=== PATIENT | female | born 1965 | race Caucasian/White ===

== ENCOUNTER 2020-01-31 15:23 | Emergency (ER) | payer SELFPAY ==
--- NOTE | 2020-01-31 15:35 | EDM.PDOC ---
ED HPI GENERAL MEDICAL PROBLEM - General Chief Complaint: Respiratory Problem Stated Complaint: COLD/SHORTNESS OF BREATH Time Seen by Provider: 01/31/20 15:25 Source of Information: Reports: Patient History Limitations: Reports: No Limitations - History of Present Illness INITIAL COMMENTS - FREE TEXT/NARRATIVE: HISTORY AND PHYSICAL: History of present illness: Patient is a 54-year-old female who presents to the emergency room with complaints of bilateral ear pain, itchy throat, dry nonproductive cough and generally feeling unwell over the past few days. Patient is concerned she may have influenza. Patient denies any headache, change in vision, syncope or near syncope. Denies any chest pain, back pain, shortness of breath. Denies any GI or symptoms. Patient has been eating and drinking appropriately. Review of systems: As per history of present illness and below otherwise all systems reviewed and negative. Past medical history: As per history of present illness and as reviewed below otherwise noncontributory. Surgical history: As per history of present illness and as reviewed below otherwise noncontributory. Social history: See social history for further information Family history: As per history of present illness and as reviewed below otherwise noncontributory. Physical exam: General: Well-developed and well-nourished 54-year-old female. Alert and oriented. Nontoxic-appearing and in no acute distress. HEENT: Atraumatic, normocephalic, pupils equal and reactive bilaterally, negative for conjunctival pallor or scleral icterus, mucous membranes moist, TMs normal bilaterally, throat clear, neck supple, nontender, trachea midline. No drooling or trismus noted. No meningeal signs. No hot potato voice noted. Lungs: Clear to auscultation, breath sounds equal bilaterally, chest nontender. Dry nonproductive cough is noted. Heart: S1S2, regular rate and rhythm without overt murmur Abdomen: Soft, nondistended, nontender. Skin: Intact, warm, dry. No lesions or rashes noted. Extremities: Atraumatic, moves all extremities per self without difficulty or deficits, negative for cords or calf pain. Neurovascular unremarkable. Neuro: Awake, alert, oriented. Cranial nerves II through XII unremarkable. Cerebellum unremarkable. Motor and sensory unremarkable throughout. Exam nonfocal. Notes: Influenza is negative. No acute findings on chest x-ray. Supportive care measures were reviewed and discussed. Voices understanding and is agreeable to plan of care. Denies any further questions or concerns at this time. Diagnostics: Influenza, CXR Therapeutics: Duo Neb Prescription: Pro-Air Inhaler Medrol Dosepak Impression: Viral URI Plan: 1. Negative chest x-ray and influenza screening. Continue with contact precautions such as coughing into your elbow/sleeve and good hand washing. Please alternate Tylenol and/or Ibuprofen as needed for pain and fever management. You can use the inhaler 1-2 puffs every 4 hours as needed 2. Get plenty of Rest. Encourage fluids to prevent dehydration. 3. Please follow up with your primary care provider. Return to the ED as needed as discussed. Definitive disposition and diagnosis as appropriate pending reevaluation and review of above. - Related Data Allergies Allergy/AdvReac Type Severity Reaction Status Date / Time No Known Allergies Allergy Verified 01/31/20 16:10 Home Meds: Home Meds Albuterol Sulfate [Proair Hfa] 2 puff IH Q4H PRN #1 [email or web address] 01/31/20 [Rx] Venlafaxine [Effexor XR] 225 mg PO DAILY 01/31/20 [History] methylPREDNISolone [Medrol] 1 dose PO DAILY 6 Days #1 dospk 01/31/20 [Rx] ED ROS GENERAL - Review of Systems Review Of Systems: Comprehensive ROS is negative, except as noted in HPI. ED EXAM, GENERAL - Physical Exam Exam: See Below (See dictation) Course - Vital Signs Last Recorded V/S: Last Vital Signs Temp 97.8 F 01/31/20 16:12 Pulse 90 01/31/20 16:12 Resp 18 01/31/20 16:12 BP 134/99 H 01/31/20 16:12 Pulse Ox 96 01/31/20 16:12 - Orders/Labs/Meds Orders: Active Orders 24 hr Category Date Time Status RT Aerosol Therapy [RC] ASDIRECTED Care 01/31/20 15:58 Active Isolation [COMM] Routine Oth 01/31/20 15:33 Active Meds: Medications Discontinued Medications Generic Name Dose Route Start Last Admin Trade Name Freq PRN Reason Stop Dose Admin Albuterol/Ipratropium 3 ml 01/31/20 15:58 Duoneb 3.0-0.5 Mg/3 Ml NEB 01/31/20 15:59 ONETIME ONE Departure - Departure Time of Disposition: 16:23 Disposition: Home, Self-Care 01 Clinical Impression: Viral URI - Discharge Information Prescriptions: Albuterol Sulfate [Proair Hfa] 2 puff IH Q4H PRN #1 [email or web address].[email or web address] PRN Reason: Dyspnea methylPREDNISolone [Medrol] 1 dose PO DAILY 6 Days #1 dospk Instructions: Viral Respiratory Infection, [id number] Referrals: Panda Campbell MD [Primary Care Provider] - Forms: ED Department Discharge Additional Instructions: The following information is given to patients seen in the emergency department who are being discharged to home. This information is to outline your options for follow-up care. We provide all patients seen in our emergency department with a follow-up referral. The need for follow-up, as well as the timing and circumstances, are variable depending upon the specifics of your emergency department visit. If you don't have a primary care physician on staff, we will provide you with a referral. We always advise you to contact your personal physician following an emergency department visit to inform them of the circumstance of the visit and for follow-up with them and/or the need for any referrals to a consulting specialist. The emergency department will also refer you to a specialist when appropriate. This referral assures that you have the opportunity for follow-up care with a specialist. All of these measure are taken in an effort to provide you with optimal care, which includes your follow-up. Under all circumstances we always encourage you to contact your private physician who remains a resource for coordinating your care. When calling for follow-up care, please make the office aware that this follow-up is from your recent emergency room visit. If for any reason you are refused follow-up, please contact the [facility] Emergency Department at and asked to speak to the emergency department charge nurse. [facility] [address] [place] [id number] [id number] 1. Negative chest x-ray and influneza screening. Continue with contact precautions such as coughing into your elbow/sleeve and good hand washing. Please alternate Tylenol and/or Ibuprofen as needed for pain and fever management. Consider taking an upgj-uqg-zqxrzpy histamine (Claritin, Zytrec, etc..) for your scratchy itchy throat and ears. You can use the inhaler 1-2 puffs every 4 hours as needed 2. Get plenty of Rest. Encourage fluids to prevent dehydration. 3. Please follow up with your primary care provider. Return to the ED as needed as discussed. Sepsis Event Note - Focused Exam Vital Signs: Vital Signs Temp Pulse Resp BP Pulse Ox 01/31/20 16:12 97.8 F 90 18 134/99 H 96 Date Exam was Performed: 01/31/20 Time Exam was Performed: 16:26 - My Orders Last 24 Hours: My Active Orders 01/31/20 15:33 Isolation [COMM] Routine 01/31/20 15:58 RT Aerosol Therapy [RC] ASDIRECTED - Assessment/Plan Last 24 Hours: My Active Orders 01/31/20 15:33 Isolation [COMM] Routine 01/31/20 15:58 RT Aerosol Therapy [RC] ASDIRECTED
[2020-01-31] MEDS ORDERED: Albuterol/Ipratropium 3.0-0.5 MG/3 ML Neb Soln NEB ONE (15:58)
--- NOTE | 2020-01-31 16:21 | CR ---
Chest: 2 views of the chest were obtained. Comparison: No previous chest imaging is available. Heart size and mediastinum are normal. Lungs are clear with no acute parenchymal change. Minimal scoliosis is noted within the spine. No acute osseous finding is seen. Impression: 1. Nothing acute is seen on 2 view chest x-ray. Diagnostic code #2 This report was dictated in MDT
== END 2020-01-31 16:50 | disposition home or self-care (01) ==
LOC: MW.ED 15:23
DX: J06.9 Acute upper respiratory infection, unspecified (principal)
CPT/HCPCS: 71046; 71046-26; 87804; 99283-25

== ENCOUNTER 2020-10-20 17:19 | Emergency (ER) | payer SELFPAY ==
[2020-10-20] MEDS ORDERED: Ondansetron 4 MG/2 ML SDV IVPUSH ONE (17:56)
[2020-10-20] MEDS ORDERED: Ketorolac 30 MG/ML SDV IVPUSH ONE (17:56)
[2020-10-20] MEDS ORDERED: Sodium Chloride 0.9% 1,000 ML IV ONE (17:56)
--- NOTE | 2020-10-20 18:39 | PCM.SN.2 ---
- Free Text/Narrative Note: 12-Lead ECG Interpretation Acquired: 6:09 PM Rhythm: Sinus rhythm Rate: 89 bpm [place]: Normal Intervals: Normal Ectopy: None RV Strain: No obvious RV strain pattern. ST Segments/T-Waves: No notable changes Acute Ischemic Changes: None apparent Interpretation: No STEMI
--- NOTE | 2020-10-20 18:43 | CR ---
INDICATION: Dyspnea COMPARISON: January 31, 2020 TECHNIQUE: Single-view portable chest radiograph. FINDINGS: TUBES AND LINES: None. HEART AND MEDIASTINUM: The heart size is normal. The mediastinal contour appears normal for patient age. LUNGS AND PLEURAL SPACES: The lungs appear normal.The pleural spaces are unremarkable. OSSEOUS STRUCTURES: Age-appropriate appearance. No acute focal finding. IMPRESSION: No evidence of active pulmonary disease. Dictated by Jose Zamora MD @ Oct 20 2020 6:42PM Signed by Dr. Jose Zamora @ Oct 20 2020 6:43PM
[2020-10-20 18:51] LABS: BLOOD UREA NITROGEN,BUN 14 mg/dL (7.0-18.0); CARBON DIOXIDE,CO2 28.2 mmol/L (21.0-32.0); CHLORIDE,CL 103 mmol/L (98-107); GLUCOSE RANDOM 91 mg/dL (74-106); POTASSIUM,K 3.9 mmol/L (3.5-5.1); SODIUM,NA 139 mmol/L (136-145)
--- NOTE | 2020-10-20 19:03 | EDM.PDOC ---
ED HPI GENERAL MEDICAL PROBLEM - General Chief Complaint: General Stated Complaint: COVID COMPLICATIONS Time Seen by Provider: 10/20/20 17:51 Source of Information: Reports: Patient History Limitations: Reports: No Limitations - History of Present Illness INITIAL COMMENTS - FREE TEXT/NARRATIVE: HISTORY AND PHYSICAL: History of present illness: Patient is a 55-year-old female who presents to the emergency room stating she does not feel well enough to return to work. She was diagnosed with COVID-19 on October 09, 2020. She states she was released to go back to work but she continues to have generalized body aches, sinus pressure/headache, fatigue and dry cough. She states she has discomfort in both of her shoulders into her neck, believes that the tension in her neck is causing her sinus headache as it feels like it is wrapping around her scalp. 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 She would like to be evaluated and if possible extend her work excuse until she feels improved. Patient denies any fever, chills, change in vision, syncope or near syncope. Denies any chest pain, back pain, shortness of breath. Denies any abdominal pain, nausea, vomiting, diarrhea, constipation or dysuria. Has not noted any blood in urine or stool. Patient has been eating and drinking appropriately. Review of systems: As per history of present illness and below otherwise all systems reviewed and negative. Past medical history: As per history of present illness and as reviewed below otherwise n oncontributory. Surgical history: As per history of present illness and as reviewed below otherwise noncontributory. Social history: See social history for further information Family history: As per history of present illness and as reviewed below otherwise noncontributory. Physical exam: General: Well developed and well nourished. Alert and orientated x 3. Nontoxic in appearance and in no acute distress. Vital signs are stable and have been reviewed by me. Nursing notes were reviewed. HEENT: Atraumatic, normocephalic, pupils equal and reactive bilaterally, negative for conjunctival pallor or scleral icterus, mucous membranes he, TMs normal bilaterally, throat clear, neck supple, nontender, trachea midline. No drooling or trismus noted. No meningeal signs. No hot potato voice noted. Lungs: Clear to auscultation, breath sounds equal bilaterally, chest nontender. Normal work of breathing, no accessory muscles used. Heart: S1S2, regular rate and rhythm without overt murmur Abdomen: Soft, nondistended, nontender. Negative for masses or costovertebral tenderness. Skin: Intact, warm, dry. No lesions or rashes noted. Hematologic: No petechiae or purpra. Mucosa appropriate color and normal nail bed color and refill. Extremities: Atraumatic, moves all extremities per self without difficulty or deficits, negative for cords or calf pain. Neurovascular unremarkable. Neuro: Awake, alert, oriented. Cranial nerves II through XII unremarkable. Cerebellum unremarkable. Motor and sensory unremarkable throughout. Exam nonfocal. C-spine/Back: No pinpoint vertebral tenderness upon palpation. No crepitus, step-offs or obvious deformities. Patient is ambulatory into the emergency room without difficulty or deficit. Denies any urinary or fecal incontinence. Denies any numbness, tingling or saddle paresthesia. No concerns of serious infection, fracture or cord compression, or cauda equina syndrome. Deep tendon reflexes brisk bilaterally. Psychiatric: Mood and affect are appropriate. Normal thought process. Answering questions appropriately. Notes: Patient's physical exam is within normal limits, although I will do a generalized work-up to make sure we are not missing anything in light of her recent COVID-19 illness. Vital signs are stable. She does appear slightly dehydrated we will give her some IV fluids and medications for comfort. All diagnostics are unremarkable. She does feel improved after the fluids and Toradol. We will give her an extended release with the intent she will follow up with a primary care provider for reevaluation before the end of the week. I have talked with the patient about today's findings, in addition to providing specific details for plan of care. Reassessment at the time of disposition demonstrates that the patient is in no acute distress. The patient is stable for discharge, counseling was provided and we discussed in great detail signs and symptoms that would prompt them to return to the Emergency Department. Medication, follow up and supportive care measures were reviewed and discussed. Voices understanding and is agreeable to plan of care. Denies any further questions or concerns at this time. Diagnostics: CBC, CMP, Troponin, EKG, CXR Therapeutics: IV fluids, Toradol Prescription: None Impression: COVID-19 Plan: 1. Today your lab work, vital signs, EKG, and chest x-ray are within normal limits. Your symptoms are likely the sequela of COVID-19. 2. You can alternate Tylenol and ibuprofen as needed for pain management. 3. We encourage you to follow up with your primary care provider and/or recommended specialist in the next few days for re-evaluation and further care/management. If your symptoms should worsen, new symptoms develop or any of the signs and symptoms we discussed should arise please return to the emergency room or call 911 (if needed). Definitive disposition and diagnosis as appropriate pending reevaluation and review of above. Headache Pain Score (Numeric/FACES): 8 - Related Data Allergies Allergy/AdvReac Type Severity Reaction Status Date / Time No Known Allergies Allergy Verified 10/20/20 17:27 Home Meds: Home Meds . [No Known Home Meds] 10/20/20 [History] Past Medical History - Past Health History Medical/Surgical History: Denies Medical/Surgical History - Infectious Disease History Infectious Disease History: Reports: Chicken Pox Social & Family History - Tobacco Use Tobacco Use Status *Q: Never Tobacco User - Caffeine Use Caffeine Use: Reports: None - Recreational Drug Use Recreational Drug Use: No ED ROS GENERAL - Review of Systems Review Of Systems: Comprehensive ROS is negative, except as noted in HPI. ED EXAM, GENERAL - Physical Exam Exam: See Below (See dictation) Course - Vital Signs Last Recorded V/S: Last Vital Signs Temp 96.5 F L 10/20/20 17:28 Pulse 99 10/20/20 17:28 Resp 18 10/20/20 17:28 BP 149/100 H 10/20/20 17:28 Pulse Ox 99 10/20/20 17:28 - Orders/Labs/Meds Labs: Laboratory Tests 10/20/20 10/20/20 Range/Units 18:21 18:21 WBC 7.46 (4.0-11.0) K/uL RBC 4.76 (4.30-5.90) M/uL Hgb 14.8 (12.0-16.0) g/dL Hct 44.0 (36.0-46.0) % MCV 92.4 (80.0-98.0) fL MCH 31.1 (27.0-32.0) pg MCHC 33.6 (31.0-37.0) g/dL RDW Std Deviation 41.5 (28.0-62.0) fl RDW Coeff of Tonio 12 (11.0-15.0) % Plt Count 344 (150-400) K/uL MPV 9.30 (7.40-12.00) fL Neut % (Auto) 77.0 (48.0-80.0) % Lymph % (Auto) 13.9 L (16.0-40.0) % [place] % (Auto) 7.1 (0.0-15.0) % Eos % (Auto) 1.7 (0.0-7.0) % Baso % (Auto) 0.3 (0.0-1.5) % Neut # (Auto) 5.7 (1.4-5.7) K/uL Lymph # (Auto) 1.0 (0.6-2.4) K/uL [place] # (Auto) 0.5 (0.0-0.8) K/uL Eos # (Auto) 0.1 (0.0-0.7) K/uL Baso # (Auto) 0.0 (0.0-0.1) K/uL Nucleated RBC % 0.0 /100WBC Nucleated RBCs # 0 K/uL Sodium 139 (136-145) mmol/L Potassium 3.9 (3.5-5.1) mmol/L Chloride 103 (98-107) mmol/L Carbon Dioxide 28.2 (21.0-32.0) mmol/L BUN 14 (7.0-18.0) mg/dL Creatinine 0.8 (0.6-1.0) mg/dL Est Cr Clr Drug Dosing 75.26 mL/min Estimated GFR (MDRD) > 60.0 ml/min Glucose 91 (74-106) mg/dL Calcium 9.3 (8.5-10.1) mg/dL Total Bilirubin 0.3 (0.2-1.0) mg/dL AST 15 (15-37) IU/L ALT 22 (14-63) IU/L Alkaline Phosphatase 120 H (46-116) U/L Troponin I < 0.050 (0.000-0.056) ng/mL Total Protein 8.0 (6.4-8.2) g/dL Albumin 3.8 (3.4-5.0) g/dL Globulin 4.2 H (2.6-4.0) g/dL Albumin/Globulin Ratio 0.9 (0.9-1.6) Meds: Medications Discontinued Medications Generic Name Dose Route Start Last Admin Trade Name Rigo PRN Reason Stop Dose Admin Sodium Chloride 1,000 mls @ 999 mls/hr 10/20/20 17:56 10/20/20 18:23 Normal Saline IV 10/20/20 18:56 999 mls/hr STAT ONE Administration Ketorolac Tromethamine 30 mg 10/20/20 17:56 10/20/20 18:25 Toradol IVPUSH 10/20/20 17:57 30 mg ONETIME ONE Administration Ondansetron HCl 4 mg 10/20/20 17:56 10/20/20 18:25 Zofran IVPUSH 10/20/20 17:57 4 mg ONETIME ONE Administration Departure - Departure Time of Disposition: 19:12 Disposition: Home, Self-Care 01 Clinical Impression: COVID-19 - Discharge Information Instructions: COVID-19 Referrals: PCP,None [Primary Care Provider] - Forms: ED Department Discharge Additional Instructions: The following information is given to patients seen in the emergency department who are being discharged to home. This information is to outline your options for follow-up care. We provide all patients seen in our emergency department with a follow-up referral. The need for follow-up, as well as the timing and circumstances, are variable depending upon the specifics of your emergency department visit. If you don't have a primary care physician on staff, we will provide you with a referral. We always advise you to contact your personal physician following an emergency department visit to inform them of the circumstance of the visit and for follow-up with them and/or the need for any referrals to a consulting specialist. The emergency department will also refer you to a specialist when appropriate. This referral assures that you have the opportunity for follow-up care with a specialist. All of these measure are taken in an effort to provide you with optimal care, which includes your follow-up. Under all circumstances we always encourage you to contact your private physician who remains a resource for coordinating your care. When calling for follow-up care, please make the office aware that this follow-up is from your recent emergency room visit. If for any reason you are refused follow-up, please contact the [facility] Emergency Department at and asked to speak to the emergency department charge nurse. [facility] [address] [place] [address] [facility] [address] [place] [phone] Thank you for choosing the [facility] emergency department in [place] for your medical needs today. It was a pleasure caring for you. Today you were seen in the emergency department for COVID-19. 1. Today your lab work, vital signs, EKG, and chest x-ray are within normal limits. Your symptoms are likely the sequela of COVID-19. 2. You can alternate Tylenol and ibuprofen as needed for pain management. 3. We encourage you to follow up with your primary care provider and/or recommended specialist in the next few days for re-evaluation and further care/management. If your symptoms should worsen, new symptoms develop or any of the signs and symptoms we discussed should arise please return to the emergency room or call 911 (if needed). Sepsis Event Note (ED) - Evaluation Sepsis Screening Result: No Definite Risk
== END 2020-10-20 19:20 | disposition home or self-care (01) ==
LOC: MW.ED 17:19
DX: U07.1 COVID-19 (principal)
CPT/HCPCS: 36415; 71045; 80053; 84484; 85025; 93005; 96374; 96375; 99284; J1885; J2405; J7030

== ENCOUNTER 2020-11-13 13:24 | Emergency (ER) | payer SELFPAY ==
--- NOTE | 2020-11-13 14:04 | EDM.PDOC ---
ED HPI GENERAL MEDICAL PROBLEM - General Chief Complaint: Skin Complaint Stated Complaint: swelling in face Time Seen by Provider: 11/13/20 13:53 Source of Information: Reports: Patient History Limitations: Reports: No Limitations - History of Present Illness INITIAL COMMENTS - FREE TEXT/NARRATIVE: HISTORY AND PHYSICAL: History of present illness: Patient is a 55-year-old female who presents to the emergency room with complaints of an infected right nare. She states that she noticed a pimple on the inside of her nostril and had tried to pop it. Over the past 24 hours she has had some redness to the external nare and is concerned that she may need antibiotics. Patient denies any fever, chills, headache, change in vision, syncope or near syncope. Denies any chest pain, back pain, shortness of breath or cough. Denies any abdominal pain, nausea, vomiting, diarrhea, constipation or dysuria. Has not noted any blood in urine or stool. Patient has been eating and drinking appropriately. Review of systems: As per history of present illness and below otherwise all systems reviewed and negative. Past medical history: As per history of present illness and as reviewed below otherwise noncontributory. Surgical history: As per history of present illness and as reviewed below otherwise noncontributory. Social history: See social history for further information Family history: As per history of present illness and as reviewed below otherwise noncontributory. Physical exam: General: Well developed and well nourished. Alert and orientated x 3. Nontoxic in appearance and in no acute distress. Vital signs are stable and have been reviewed by me. Nursing notes were reviewed. HEENT: Atraumatic, normocephalic, pupils equal and reactive bilaterally, negative for conjunctival pallor or scleral icterus, mucous membranes moist, nares are patent and intact (SEE SKIN), TMs normal bilaterally, throat clear, neck supple, nontender, trachea midline. No drooling or trismus noted. No meningeal signs. No hot potato voice noted. Lungs: Clear to auscultation, breath sounds equal bilaterally. Normal work of breathing, no accessory muscles used. Heart: S1S2, regular rate and rhythm without overt murmur Skin: Small raised bump to the distal outer corner of right nare with mild erythema to the upper lip and cheek about 7mm in diameter. No fluctuance and nonindurated. Remaining skin is intact, warm, dry. No lesions or rashes noted. Hematologic: No petechiae or purpra. Mucosa appropriate color and normal nail bed color and refill. Extremities: Atraumatic, moves all extremities per self without difficulty or deficits, negative for cords or calf pain. Neurovascular unremarkable. Neuro: Awake, alert, oriented. Cranial nerves II through XII unremarkable. Cerebellum unremarkable. Motor and sensory unremarkable throughout. Exam nonfocal. Psychiatric: Mood and affect are appropriate. Normal thought process. Answering questions appropriately. Notes: Patient states she popped a "pimple" to the inside of her nose and now it appears she may have an early cellulitis. I will place her on a short course of antibiotics. I have talked with the patient about today's findings, in addition to providing specific details for plan of care. Reassessment at the time of disposition demonstrates that the patient is in no acute distress. The patient is stable for discharge, counseling was provided and we discussed in great detail signs and symptoms that would prompt them to return to the Emergency Department. Medication, follow up and supportive care measures were reviewed and discussed. Voices understanding and is agreeable to plan of care. Denies any further questions or concerns at this time. Diagnostics: None Therapeutics: None Prescription: Keflex Impression: Cellulitis Plan: 1. Gentle heat to the area. Keep the skin clean and dry. Continue to monitor for signs of improvement. 2. Take the mediation as prescribed. You can take Tylenol and/or Ibuprofen as needed for pain. 3. We encourage you to follow up with your primary care provider and/or recommended specialist in the next few days for re-evaluation and further care/management. If your symptoms should worsen, new symptoms develop or any of the signs and symptoms we discussed should arise please return to the emergency room or call 911 (if needed). Definitive disposition and diagnosis as appropriate pending reevaluation and review of above. - Related Data Allergies Allergy/AdvReac Type Severity Reaction Status Date / Time No Known Allergies Allergy Verified 11/13/20 14:06 Home Meds: Home Meds cephALEXin [Keflex] 500 mg PO Q8H 5 Days #15 cap 11/13/20 [Rx] Past Medical History - Past Health History Medical/Surgical History: Denies Medical/Surgical History - Infectious Disease History Infectious Disease History: Reports: Chicken Pox Social & Family History - Caffeine Use Caffeine Use: Reports: None ED ROS GENERAL - Review of Systems Review Of Systems: Comprehensive ROS is negative, except as noted in HPI. ED EXAM, SKIN/RASH Exam: See Below (See dictation) Course - Vital Signs Last Recorded V/S: Last Vital Signs Temp 97.5 F 11/13/20 13:54 Pulse 100 11/13/20 14:23 Resp 16 11/13/20 14:23 BP 117/76 11/13/20 14:23 Pulse Ox 95 11/13/20 14:23 - Orders/Labs/Meds Meds: Medications Discontinued Medications Generic Name Dose Route Start Last Admin Trade Name Freq PRN Reason Stop Dose Admin Mupirocin 1 gm 11/13/20 22:00 Bactroban Crm TOP TID AMBER Departure - Departure Time of Disposition: 14:02 Disposition: Home, Self-Care 01 Clinical Impression: Cellulitis Qualifiers: Site of cellulitis: face Qualified Code(s): L03.211 - Cellulitis of face - Discharge Information Prescriptions: cephALEXin [Keflex] 500 mg PO Q8H 5 Days #15 cap Instructions: Cellulitis, Adult, [id number] Referrals: Daysi Rankin DO [Primary Care Provider] - Forms: ED Department Discharge Additional Instructions: The following information is given to patients seen in the emergency department who are being discharged to home. This information is to outline your options for follow-up care. We provide all patients seen in our emergency department with a follow-up referral. The need for follow-up, as well as the timing and circumstances, are variable depending upon the specifics of your emergency department visit. If you don't have a primary care physician on staff, we will provide you with a referral. We always advise you to contact your personal physician following an emergency department visit to inform them of the circumstance of the visit and for follow-up with them and/or the need for any referrals to a consulting specialist. The emergency department will also refer you to a specialist when appropriate. This referral assures that you have the opportunity for follow-up care with a specialist. All of these measure are taken in an effort to provide you with optimal care, which includes your follow-up. Under all circumstances we always encourage you to contact your private physician who remains a resource for coordinating your care. When calling for follow-up care, please make the office aware that this follow-up is from your recent emergency room visit. If for any reason you are refused follow-up, please contact the [facility] Emergency Department at and asked to speak to the emergency department charge nurse. [facility] [address] [place] [address] [facility] [address] [place] [address] Thank you for choosing the [facility] emergency department in [place] for your medical needs today. It was a pleasure caring for you. Today you were seen in the emergency department for skin infection. 1. Gentle heat to the area. Keep the skin clean and dry. Continue to monitor for signs of improvement. 2. Take the mediation as prescribed. You can take Tylenol and/or Ibuprofen as needed for pain. 3. We encourage you to follow up with your primary care provider and/or recommended specialist in the next few days for re-evaluation and further care/management. If your symptoms should worsen, new symptoms develop or any of the signs and symptoms we discussed should arise please return to the emergency room or call 911 (if needed). Sepsis Event Note (ED) - Focused Exam Vital Signs: Vital Signs Temp Pulse Resp BP Pulse Ox 11/13/20 14:23 100 16 117/76 95 11/13/20 13:54 97.5 F 108 H 17 121/83 95
[2020-11-13] MEDS ORDERED: Mupirocin Crm 30 GM Tube TOP SCH (22:00)
== END 2020-11-13 14:24 | disposition home or self-care (01) ==
LOC: MW.ED 13:24
DX: L03.211 Cellulitis of face (principal)
CPT/HCPCS: 99282; 99283

== ENCOUNTER 2021-07-29 09:52 | Emergency (ER) | payer SELFPAY ==
--- NOTE | 2021-07-29 10:27 | EDM.PDOC ---
ED HPI GENERAL MEDICAL PROBLEM - General Chief Complaint: Lower Extremity Injury/Pain Stated Complaint: POSSIBLE SPIDER BITE Time Seen by Provider: 07/29/21 10:08 Source of Information: Reports: Patient History Limitations: Reports: No Limitations - History of Present Illness INITIAL COMMENTS - FREE TEXT/NARRATIVE: HISTORY AND PHYSICAL: History of present illness: The patient is a 56-year-old female who presents to the emergency room with complaints of left lower posterior ankle spider bite that she noticed last [id number]/2021. The patient states that on 07/22/2021 coworker emergency department in a container and marked the spider outside. The patient stated that she did not boxes on Sunday but did not notice anything. On Sunday she wore above the ankle boot to work and by Sunday evening noticed pain lower posterior midline left ankle. Over the course of the week the left foot can become swollen. She has been using Neosporin on the area. She has been taking Motrin up to 6 tablets or 1200mg three to four times per day. Patient denies any fever, chills, headache, change in vision, syncope or near syncope. Denies any chest pain, back pain, shortness of breath or cough. Denies any abdominal pain, nausea, vomiting, diarrhea, constipation or dysuria. Has not noted any blood in urine or stool. Patient has been eating and drinking appropriately. Review of systems: As per history of present illness and below otherwise all systems reviewed and negative. Past medical history: As per history of present illness and as reviewed below otherwise noncontr ibutory. Surgical history: As per history of present illness and as reviewed below otherwise noncontributory. Social history: See social history for further information Family history: As per history of present illness and as reviewed below otherwise noncontributory. Physical exam: General: Well developed and well nourished. Alert and orientated x 3. Nontoxic in appearance and in no acute distress. Vital signs are stable and have been reviewed by me. Nursing notes were reviewed. HEENT: Atraumatic, normocephalic, pupils equal and reactive bilaterally, negative for conjunctival pallor or scleral icterus, mucous membranes moist, TMs normal bilaterally, throat clear, neck supple, nontender, trachea midline. No drooling or trismus noted. No meningeal signs. No hot potato voice noted. Lungs: Clear to auscultation bilaterally. No wheezes, rales, or rhonchi. Chest nontender. Normal work of breathing, no accessory muscles used. Heart: S1S2, regular rate and rhythm without overt murmur, gallops, or rubs. No JVD. No peripheral edema Abdomen: Soft, nondistended, nontender. Normoactive bowel sounds. Negative for masses or costovertebral tenderness. Skin: Warm & dry. Left lower leg with erythema and swelling. Weeping bulging core. Hematologic: No petechiae or purpra. Mucosa appropriate color and normal nail bed color and refill. Extremities: Moves all extremities per self without difficulty or deficits, negative for cords or calf pain. Neurovascular unremarkable. Neuro: Awake, alert, oriented. Cranial nerves II through XII unremarkable. Cerebellum unremarkable. Motor and sensory unremarkable throughout. Exam nonfocal. Psychiatric: Mood and affect are appropriate. Normal thought process. Answering questions appropriately. Notes: *This patient was seen and evaluated during the 2019 SARS-CoV-2 novel coronavirus pandemic period. Community viral transmission is ongoing at time of this encounter and the emergency department is operating under pandemic response procedures. Stated above the patient is a 56-year-old female who presents to the emergency room with complaints of posterior left lower leg wound that is erythematous, swollen, and weeping serosanguineous foot. Upon examination noted fluctuance area with white fluid. I will excise drain the area. The patient is "anxious about the pain, so I will treat her with 1 mg of Dilaudid IM. Once that has taken effect I numb the area and performed the procedure. Patient is agreeable with this plan. Area I&D after injection of lidocaine 1%. Please see procedure note. The patient tolerated well. I will prescribe Augmentin one by mouth twice a day for 5 days and cephalexin 500 mg every 6 hours for 5 days. Bactroban to area daily for 5 days. Tramadol 50 mg every 6 hours as needed for pain #8. Instructed the patient the Bactroban is not to be applied while the area is draining. And that if the patient does not need to apply the Bactroban that she does not need to. I have talked with the patient about today's findings, in addition to providing specific details for plan of care. Reassessment at the time of disposition demonstrates that the patient is in no acute distress. The patient is stable for discharge, counseling was provided and we discussed in great detail signs and symptoms that would prompt them to return to the Emergency Department. Medication, follow up and supportive care measures were reviewed and discussed. Voices understanding and is agreeable to plan of care. Denies any further questions or concerns at this time. Therapeutics: Dilaudid 1 mg Prescription: Augmentin one by mouth twice a day for 5 days and cephalexin 500 mg every 6 hours for 5 days. Bactroban to area daily for 5 days. Tramadol 50 mg every 6 hours as needed for pain #8 Impression: Cellulitis Plan: 1. You were evaluated today on an emergent basis. Your wound on your back of your lower left leg was evaluated and found to be infected. We treated the infection by opening the wound and draining the infection. I have prescribed Augmentin one by mouth twice a day for 5 days and cephalexin 500 mg every 6 hours for 5 days. You need to complete both antibiotics. I am covering you for possible MRSA. Leave the dressing in place for at least 24 hours. Keep the area clean and dry. You can work as long as you keep the area covered. I have treated your pain while in the emergency department on Dilaudid 1 mg intramuscularly. You can take Tylenol 650 mg every 4 hours as needed for pain. You can take Motrin 600 mg, which is 3 tablets, every 6-8 hours as needed for pain. The maximum dose of Motrin in a 24-hour period is 3200 mg. Be Sure not to go over the maximum dose as this can be detrimental to your kidneys. I have prescribed tramadol 50 mg every 6 hours as needed for pain for 2 days. I have prescribed Bactroban to apply to area daily for 5 days. Please stay away from Neosporin as this can cause a skin rash making it hard to differentiate between infection and irritation. You will need to follow-up with your primary care. I would call to make an appointment for your fifth day of the antibiotic to ensure healing. If she has given you a note for work. You can return to work on Sunday or sooner if you are able to tolerate it. 2. You can alternate Tylenol and ibuprofen as needed for pain and fever management. 3. We encourage you to follow up with your primary care provider and/or recommended specialist in the next few days for re-evaluation and further care/management. 4. If your symptoms should worsen, new symptoms develop or any of the signs and symptoms we discussed should arise please return to the emergency room or call 911 (if needed). Definitive disposition and diagnosis as appropriate pending reevaluation and review of above. left ankle Pain Score (Numeric/FACES): 10 - Related Data Allergies Allergy/AdvReac Type Severity Reaction Status Date / Time No Known Allergies Allergy Verified 07/29/21 10:14 Home Meds: Home Meds Amoxicillin/Clavulanate K [Augmentin 875-125 MG] 1 tab PO BID 5 Days #10 tablet 07/29/21 [Rx] Mupirocin Oint [Bactroban Oint] 1 applic TOP DAILY 5 Days #22 gm 07/29/21 [Rx] cephALEXin [Cephalexin] 500 mg PO Q6HR 5 Days #20 capsule 07/29/21 [Rx] traMADol [Ultram] 50 mg PO Q6H PRN 2 Days #8 tab 07/29/21 [Rx] Past Medical History - Past Health History Medical/Surgical History: Denies Medical/Surgical History - Infectious Disease History Infectious Disease History: Reports: Chicken Pox Social & Family History - Family History Family Medical History: No Pertinent Family History - Tobacco Use Tobacco Use Status *Q: Never Tobacco User Second Hand Smoke Exposure: No - Caffeine Use Caffeine Use: Reports: None - Recreational Drug Use Recreational Drug Use: No Review of Systems - Review of Systems Review Of Systems: Comprehensive ROS is negative, except as noted in HPI. ED EXAM, GENERAL - Physical Exam Exam: See Below (See dictation) ED TRAUMA EXTREMITY PROCEDURES - I&D Site: Posterior left lower leg Skin Prep: Chlorhexidine (Hibiciens) Local Anesthesia: Lidocaine: 1% Plain Local Anesthetic Volume: 5cc Area Incised With: 11 Blade Drainage: Purulent, Moderate Amount Probed to Break Up Loculations: Yes Packed With: 1/4 in. Iodoform Sterile Dressinx4(s) Complications: No Course - Vital Signs Last Recorded V/S: Last Vital Signs Temp 97.8 F 07/29/21 12:40 Pulse 90 07/29/21 12:40 Resp 18 07/29/21 12:40 BP 128/68 07/29/21 12:40 Pulse Ox 97 07/29/21 12:40 - Orders/Labs/Meds Meds: Medications Discontinued Medications Generic Name Dose Route Start Last Admin Trade Name Freq PRN Reason Stop Dose Admin Hydromorphone HCl 1 mg 07/29/21 10:32 07/29/21 10:47 Hydromorphone 1 Mg/Ml Syringe IM 07/29/21 10:33 1 mg ONETIME ONE Administration Lidocaine HCl 5 ml 07/29/21 10:21 07/29/21 10:59 Lidocaine 1% 5 Ml Sdv INJECT 07/29/21 10:22 5 ml ONETIME ONE Administration Departure - Departure Time of Disposition: 12:07 Disposition: Home, Self-Care 01 Condition: Good Clinical Impression: Cellulitis Qualifiers: Site of cellulitis: extremity Site of cellulitis of extremity: lower extremity Laterality: left Qualified Code(s): L03.116 - Cellulitis of left lower limb - Discharge Information *PRESCRIPTION DRUG MONITORING PROGRAM REVIEWED*: Not Applicable *COPY OF PRESCRIPTION DRUG MONITORING REPORT IN PATIENT LISSA: Not Applicable Prescriptions: Amoxicillin/Clavulanate K [Augmentin 875-125 MG] 1 tab PO BID 5 Days #10 tablet Mupirocin Oint [Bactroban Oint] 1 applic TOP DAILY 5 Days #22 gm cephALEXin [Cephalexin] 500 mg PO Q6HR 5 Days #20 capsule traMADol [Ultram] 50 mg PO Q6H PRN 2 Days #8 tab PRN Reason: Pain (Moderate 4-6) Instructions: Cellulitis, Adult, [id number] Referrals: PCP,None [Primary Care Provider] - Forms: ED Department Discharge Additional Instructions: The following information is given to patients seen in the emergency department who are being discharged to home. This information is to outline your options for follow-up care. We provide all patients seen in our emergency department with a follow-up referral. The need for follow-up, as well as the timing and circumstances, are variable depending upon the specifics of your emergency department visit. If you don't have a primary care physician on staff, we will provide you with a referral. We always advise you to contact your personal physician following an emergency department visit to inform them of the circumstance of the visit and for follow-up with them and/or the need for any referrals to a consulting specialist. The emergency department will also refer you to a specialist when appropriate. This referral assures that you have the opportunity for follow-up care with a specialist. All of these measure are taken in an effort to provide you with optimal care, which includes your follow-up. Under all circumstances we always encourage you to contact your private physician who remains a resource for coordinating your care. When calling for follow-up care, please make the office aware that this follow-up is from your recent emergency room visit. If for any reason you are refused follow-up, please contact the [facility] Emergency Department at and asked to speak to the emergency department charge nurse. [facility] [address] [place] [address] [id number] [address] [address] Plan: 1. You were evaluated today on an emergent basis. Your wound on your back of your lower left leg was evaluated and found to be infected. We treated the infection by opening the wound and draining the infection. I have prescribed Augmentin one by mouth twice a day for 5 days and cephalexin 500 mg every 6 hours for 5 days. You need to complete both antibiotics. I am covering you for possible MRSA. Leave the dressing in place for at least 24 hours. Keep the area clean and dry. You can work as long as you keep the area covered. I have treated your pain while in the emergency department on Dilaudid 1 mg intramuscularly. You can take Tylenol 650 mg every 4 hours as needed for pain. You can take Motrin 600 mg, which is 3 tablets, every 6-8 hours as needed for pain. The maximum dose of Motrin in a 24-hour period is 3200 mg. Be Sure not to go over the maximum dose as this can be detrimental to your kidneys. I have prescribed tramadol 50 mg every 6 hours as needed for pain for 2 days. I have prescribed Bactroban to apply to area daily for 5 days. Please stay away from Neosporin as this can cause a skin rash making it hard to differentiate between infection and irritation. You will need to follow-up with your primary care. I would call to make an appointment for your fifth day of the antibiotic to ensure healing. If she has given you a note for work. You can return to work on Sunday or sooner if you are able to tolerate it. 2. You can alternate Tylenol and ibuprofen as needed for pain and fever management. 3. We encourage you to follow up with your primary care provider and/or recommended specialist in the next few days for re-evaluation and further care/management. 4. If your symptoms should worsen, new symptoms develop or any of the signs and symptoms we discussed should arise please return to the emergency room or call 911 (if needed). Sepsis Event Note (ED) - Focused Exam Vital Signs: Vital Signs Temp Pulse Resp BP Pulse Ox 07/29/21 12:40 97.8 F 90 18 128/68 97 07/29/21 10:03 97.0 F 98 18 139/88 97
[2021-07-29] MEDS ORDERED: HYDROmorphone 1 MG/ML Syringe IM ONE (10:32)
== END 2021-07-29 12:41 | disposition home or self-care (01) ==
LOC: MW.ED 09:52
DX: L03.116 Cellulitis of left lower limb (principal)
CPT/HCPCS: 10061; 96372; 99282; J1170

== ENCOUNTER 2025-06-23 18:14 | Emergency (ER) | payer OTHER ==
[2025-06-23 18:29] LABS: BASOPHILS ABSOLUTE AUTO 0.03 K/uL (0.00-0.20); BASOPHILS PERCENT AUTO 0.3 % (0.0-1.0); EOSINOPHILS ABSOLUTE AUTO 0.00 K/uL (0.00-0.45); EOSINOPHILS PERCENT AUTO 0.0 % (0.0-6.0); IMMATURE GRAN ABSOLUTE AUTO 0.03 K/uL (0.00-0.05); IMMATURE GRAN PERCENT AUTO 0.3 % (0.0-0.4); LYMPHOCYTES ABSOLUTE AUTO 0.83 K/uL (1.00-4.80); LYMPHOCYTES PERCENT AUTO 7.6 % (24.0-44.0); MEAN PLATELET VOLUME 8.4 fL (9.4-12.3); MONOCYTES ABSOLUTE AUTO 0.48 K/uL (0.00-0.80); MONOCYTES PERCENT AUTO 4.4 % (0.0-8.0); NEUTROPHILS ABSOLUTE AUTO 9.54 K/uL (1.80-7.70); NEUTROPHILS PERCENT AUTO 87.4 % (41.0-71.0); NRBC ABSOLUTE 0.00 K/uL (0.00-0.02); NRBC PERCENT 0.0 /100WBC (0.0-0.2); PLATELET COUNT,PLT 285 K/uL (150-400); RED BLOOD CELL COUNT 4.66 M/uL (4.10-5.30); WHITE BLOOD CELL COUNT,WBC 10.91 K/uL (3.9-11.3)
[2025-06-23] MEDS: PHENobarbital Sodium 130 MG/ML SDV IVPUSH ONE (18:51)
[2025-06-23] MEDS: Ondansetron 4 MG/2 ML SDV IVPUSH ONE (18:51)
[2025-06-23 18:55] LABS: A/G RATIO 1.0 (0.9-1.6); ALANINE AMINOTRANSFERASE,ALT 45 IU/L (14-63); ASPARTATE AMNIOTRANSFERASE,AST 61 IU/L (15-37); BILIRUBIN TOTAL 1.1 mg/dL (0.2-1.0); BLOOD UREA NITROGEN,BUN 22 mg/dL (7.0-18.0); CARBON DIOXIDE,CO2 20.0 mmol/L (21.0-32.0); CHLORIDE,CL 96 mmol/L (98-107); CREATININE 1.2 mg/dL (0.6-1.0); EST CRCL DRUG DOSING (CG) 47.25 mL/min; GLUCOSE RANDOM 175 mg/dL (74-106); POTASSIUM,K 3.6 mmol/L (3.5-5.1); PROTEIN TOTAL,TP 7.1 g/dL (6.4-8.2); SODIUM,NA 136 mmol/L (136-145)
[2025-06-23 18:59] LABS: ESTIMATED GFR 52 mL/min (>60); ETHANOL BLOOD MEDICAL < 3.0 mg/dL
[2025-06-23] MEDS: droPERidol 2.5 MG/ML SDV IVPUSH ONE (19:16)
[2025-06-23 19:18] LABS: APPEARANCE,URINE SLT CLOUDY; GLUCOSE,URINE NEGATIVE (NEGATIVE); OCCULT BLOOD,URINE TRACE-INTACT (NEGATIVE)
[2025-06-23 19:27] LABS: EPITHELIAL CELLS,URINE FEW (NONE-FEW)
[2025-06-23 19:28] LABS: AMPHETAMINES SCREEN, URINE PRESUMPTIVE POSITIVE (CUTOFF=500); BUPRENORPHINE SCREEN,URINE NEGATIVE (CUTOFF=10); METHADONE SCREEN, URINE NEGATIVE (CUTOFF=200); METHAMPHETAMINES SCREEN, URINE PRESUMPTIVE POSITIVE (CUTOFF=500); OXYCODONE SCREEN,URINE NEGATIVE (CUT0FF=100); PCP SCREEN,URINE NEGATIVE (CUTOFF=25); THC SCREEN,URINE 20 NG/ML NEGATIVE (CUTOFF=50)
[2025-06-23] MEDS: cefTRIAXone 2 GM in Water For Injection, Sterile 20 ML IVPUSH ONE (19:50)
[2025-06-23] MEDS: Iopamidol 755 MG/ML 500 ML Multipack Bottle IVPUSH STA (20:00)
== END 2025-06-23 21:15 | disposition home or self-care (01) ==
LOC: MW.ED 18:14
DX: K52.9 Noninfective gastroenteritis and colitis, unspecified (principal); D25.9 Leiomyoma of uterus, unspecified; F10.130 Alcohol abuse with withdrawal, uncomplicated; F15.10 Other stimulant abuse, uncomplicated; E86.0 Dehydration; Z79.899 Other long term (current) drug therapy
CPT/HCPCS: 36415; 74177; 80053; 80305; 80307; 81001; 83690; 84484; 85025; 87086; 87088; 87186; 93005; 96361; 96374; 96375; 99284; A4216; J0696; J1790; J2405; J2560; J7030; Q9967; 93010